=== PATIENT | male | born 1950 | race Caucasian/White ===

== ENCOUNTER 2018-05-07 11:20 | Outpatient (CLI) | payer OTHER ==
[~2018-05-07] VITALS: Ht 175.3 cm; Wt 86.4 kg
--- NOTE | ~2018-05-07 | HEMODYNAMI ---
PATIENT:ARY WANG MEDICAL RECORD: [id number] : 54 LOCATION:D.CAT ADMISSION DATE: 05/07/18 Generatedon:05/07/201814:58 Patient name: ARY WANG Patient #: [id number] SSN: : 1950 Date of study: 05/07/2018 Page: Of Hemodynamic Procedure Report Patient Data Patient Demographics Procedure consent was obtained First Name: ARY Gender: Male Last Name: KATHLEEN : 1950 Patient #: [id number] Age: 68 year(s) Race: Additional ID: [id number] Contact details [address]: [address] [place] [address] State: [place] City: [place] Zip code: [address] Admission Admission Data Admission Date: 05/07/2018 Admission Time: 11:20 Procedure Procedure Types Cath Procedure Diagnostic Procedure LHC LHC w/Coronaries w/Grafts PCI Procedure Coronary Stent Coronary Stent Initial Procedure Description Procedure Date Procedure Date: 05/07/2018 Procedure Start Time: 14:30 Procedure End Time: 14:57 Procedure Staff Name Function Sawyer Villavicencio MD Performing Physician Zeny Quintana RT Monitor Marisa Lebron RT Scrub Ammon Coyne RN Nurse Procedure Data Cath Procedure Fluoroscopy Diagnostic fluoroscopy Total fluoroscopy Time: 7.3 time: 7.3 min min Diagnostic fluoroscopy Total fluoroscopy dose: dose: 1027 mGy 1027 mGy Contrast Material Contrast Material Type Amount (ml) Isovue 300 128 Entry Location Entry Primary Successful Side Size Upsize Upsize Entry Closure Succes sful Closure Location (Fr) 1 (Fr) 2 (Fr) Remarks Device Remarks Femoral Right 5 Fr 6 Fr Exoseal artery Short Estimated blood loss: 5 ml Diagnostic catheters Device Type Used For End Catheter Placement MULTIPACK JL 4.0 5Fr Left Coronary catheter Angiography MULTIPACK 3DRC 5Fr Right Coronary catheter Angiography MULTIPACK Pigtail 5 Fr LV Angiography catheter DIAGNOSTIC MPA-2 5Fr Multi-vessel catheter ([id number]) Angiography Procedure Complications No complications Procedure Medications Medication Administration Route Dosage 0.9% NaCl I.V. 100 ml/hr Oxygen etCO2 Nasal cannula 2 l/min Heparin Flush Bag added to field 2 bags (1000units/500ml NS) Lidocaine 2% added to field 20 Versed I.V. 2 mg Fentanyl I.V. 100 mcg Heparin Bolus I.V. 5000 units Integrilin (Bolus I.V. 7.9 ml 2mg/ml) Integrilin (Bolus wasted 2.1 ml 2mg/ml) Plavix P.O. 600 mg Hemodynamics Rest Heart Rate: 77 (bpm) Pressure Samples Time Site Value (mmHg) Purpose Heart Use Rate(bpm) 14:38 LV 114/15,20 Snapshot 77 14:39 AO 116/67(90) Pullback 76 14:39 LV 120/16,19 Pullback 76 Gradients Valve Time Site 1 Site 2 Mean SEP/DFP Peak To Heart Use (mmHg) (sec/min) Peak Rate (mmHg) (bpm) Aortic 14:39 LV AO 4 16 4 76 120/16,19 116/67(90) Calculations Valve P-P Mean Valve Index Valve Source Name Gradient Area Flow (cm2) Aortic 4 4 4 4 Snapshots Pre Cath Intra NCS Post Cath Vital Signs Time Heart Resp SPO2 etCO2 NIBP (mmHg) Rhythm Pain Sedation Rate (ipm) (%) (mmHg) Status Level (bpm) 14:06:16 75 19 100 27.1 128/76(96) NSR 0 (11) 10(A) , No pain 14:10:24 75 6 95 0 109/80(92) NSR 0 (11) 10(A) , No pain 14:15:15 71 10 99 16.5 136/78(111) NSR 0 (11) 10(A) , No pain 14:19:25 75 11 99 15.8 134/82(112) NSR 0 (11) 10(A) , No pain 14:23:37 76 11 99 29.3 128/77(99) NSR 0 (11) 10(A) , No pain 14:27:47 76 12 99 20.3 127/77(109) NSR 0 (11) 10(A) , No pain 14:31:58 75 12 99 39.9 129/69(100) NSR 0 (11) 9(A) , No pain 14:36:10 78 12 99 39.9 121/68(95) NSR 0 (11) 9(A) , No pain 14:40:18 80 11 99 41.4 128/73(102) NSR 0 (11) 9(A) , No pain 14:44:28 78 12 99 42.1 117/75(94) NSR 0 (11) 9(A) , No pain 14:48:34 77 12 99 41.4 116/76(92) NSR 0 (11) 10(A) , No pain 14:52:40 76 13 99 40.6 118/74(89) NSR 0 (11) 10(A) , No pain 14:56:45 75 13 99 36.2 125/75(90) NSR 0 (11) 10(A) , No pain Medications Time Medication Route Dose Verified Delivered Reason Notes Effectiveness by by 14:07:04 0.9% NaCl I.V. 100 Ammon Ammon Per physician ml/hr Stanford Coyne RN RN 14:07:14 Oxygen etCO2 2 Ammon Ammon Per physician Nasal l/min Stanford Coyne cannula RN RN 14:07:26 Heparin Flush added 2 Ammon Ammon used for Bag to bags Stanford Coyne procedure (1000units/500ml RN RN NS) 14:07:35 Lidocaine 2% added 20ml Ammon Ammon for local to vial Stanford Coyne anesthetic RN RN 14:31:28 Versed I.V. 2 mg Ammon Ammon for sedation Stanford Coyne RN RN 14:31:41 Fentanyl I.V. 100 Ammon Ammon for sedation mcg Stanford Coyne RN RN 14:47:44 Heparin Bolus I.V. 5000 Ammon Ammon for units Stanford Coyne anticoagulation RN RN 14:48:03 Integrilin I.V. 7.9 Ammon Ammon for (Bolus 2mg/ml) ml Stanford Coyne antiplatelet RN RN therapy 14:48:12 Integrilin wasted 2.1ml Ammon Ammon to sharp's (Bolus 2mg/ml) Stanford Coyne RN RN 14:54:25 Plavix P.O. 600 Ammon Ammon for mg Stanford Coyne antiplatelet RN RN therapy Procedure Log Time Note 13:54:07 Informed consent obtained and on chart 13:54:11 Diagnostic Cath Status : Elective 13:54:33 Ammon Coyne RN sent for patient. Start room use. 13:54:34 Time tracking: Regular hours (M-F 7:00 - 5:00) 13:54:40 Plan of Care:Hemodynamics will remain stable., Cardiac rhythm will remain stable., Comfort level will be maintained., Respiratory function will remain adequate., Patient/ family verbilizes understanding of procedure., Procedure tolerated without complication., Recovers from procedure without complications.. 14:05:12 Patient received from Pre/Post Procedure Room to CCL 2 Alert and oriented. Tansferred to table in Supine position. 14:05:13 Warm blankets applied, and rafael hugger turned on for patient comfort. 14:05:14 Correct patient and procedure confirmed by team. 14:05:14 ECG and BP/O2 sat monitors applied to patient. 14:05:16 Vital chart was started 14:05:17 Baseline sample Acquired. 14:05:22 Rhythm: sinus rhythm 14:05:24 Full Disclosure recording started 14:05:28 H&P Date Dictated: 05/07/2018 Within 30 days and on chart., H&P Addendum completed by physician on day of procedure. (MUST COMPLETE FOR ALL OUTPATIENTS). 14:05:29 Pre-procedure instructions explained to patient. 14:05:30 Pre-op teaching completed and patient verbalized understanding. 14:05:31 Family in waiting room. 14:05:32 Patient NPO since Midnight. 14:05:47 Is the patient allergic to Iodine/contrast media? No. 14:05:47 Was the patient premedicated? No 14:05:49 Is patient on blood thinner?No 14:05:54 Patient diabetic? No. 14:05:59 Previous problem with sedation/anesthesia? No ? 14:06:01 Snore? Yes 14:06:02 Sleep apnea? Yes 14:06:03 Deviated septum? No 14:06:03 Opens mouth fully? Yes 14:06:04 Sticks out tongue? Yes 14:06:06 Airway obstruction? No ? 14:06:08 Dentures? No ? 14:06:12 Pre procedure: right dorsailis pedis pulse 2+ Normal; easily identifiable; not easily obliterated 14:06:14 Pre procedure: left dorsailis pedis pulse 2+ Normal; easily identifiable; not easily obliterated 14:06:16 Patient pain scale 0/10 ?. 14:06:22 IV patent on arrival in left hand with 0.9% NaCl at [facility]. 14:06:25 Lab results completed and on chart. 14:06:29 Right groin area was prepped with chlora-prep and draped in sterile fashion 14:06:30 Alarms reviewed by R. N. 14:06:30 Sharps counted by scrub and verified by R.N. 14:06:35 Use device set Femoral Dx 14:06:37 ACIST Syringe (58413) opened to sterile field. 14:06:37 Bag Decanter (2002S) opened to sterile field. 14:06:38 Medline Cath Pack ([id number]) opened to sterile field. 14:06:39 DIAGNOSTIC WIRE .035 260cm J wire (306856) opened to sterile field. 14:06:40 ACIST Hand Control (93533) opened to sterile field. 14:06:41 ACIST Manifold (65194) opened to sterile field. 14:06:41 DIAGNOSTIC Multipack 5Fr catheter set (NK9009) opened to sterile field. 14:06:42 Tegaderm 4 x 4 (1626W) opened to sterile field. 14:06:44 SHEATH 5FR Duff (AQE650) opened to sterile field. 14:07:04 0.9% NaCl 100 ml/hr I.V. was administered by Ammon Coyne RN; Per physician; 14:07:14 Oxygen 2 l/min etCO2 Nasal cannula was administered by Ammon Coyne RN; Per physician; 14:07:26 Heparin Flush Bag (1000units/500ml NS) 2 bags added to field was administered by Ammon Coyne RN; used for procedure; 14:07:35 Lidocaine 2% 20ml vial added to field was administered by Ammon Coyne RN; for local anesthetic; 14:20:05 Physician arrived 14:20:06 --------ALL STOP TIME OUT------ 14:20:07 Final Timeout: patient, procedure, and site verified with staff and physician. All members of the team are in agreement. 14:20:11 Right groin site verified by team. 14:20:14 Physical assessment completed. ASA score P 2 - A patient with mild systemic disease as per Sawyer Villavicencio MD. 14:20:18 Sedation plan: IV Moderate Sedation Medication:Versed, Fentanyl 14:22:10 Zero performed for pressure channel P1 14:29:58 Procedure started. 14:30:02 Local anesthetic to right femoral artery with Lidocaine 2% by Sawyer Villavicencio MD.INITIAL ACCESS ONLY 14:30:52 A 5 Fr sheath was inserted into the Right Femoral artery 14:31:28 Versed 2 mg I.V. was administered by Ammon Coyne RN; for sedation; 14:31:41 Fentanyl 100 mcg I.V. was administered by Ammon Coyne RN; for sedation; 14:31:42 A MULTIPACK JL 4.0 5Fr catheter was advanced over the wire and used for Left Coronary Angiography. 14:32:15 LONDONO angiography performed. 14:32:50 LCA angiography performed. 14:32:53 Injector settings: Ml/sec: 3, Volume: 6, 14:34:23 Catheter removed. 14:34:28 A MULTIPACK 3DRC 5Fr catheter was advanced over the wire and used for Right Coronary Angiography. 14:35:10 RCA angiography performed. 14:35:16 Injector settings: Ml/sec: 3, Volume: 6, 14:36:56 Catheter removed. 14:37:11 A MULTIPACK Pigtail 5 Fr catheter was advanced over the wire and used for LV Angiography. 14:38:33 LV hemodynamics recorded. 14:38:34 LV gram done using DAHL 14:38:37 Injector settings: Ml/sec: 5, Volume: 15, 14:38:58 EF : 55 % 14:39:11 Aortic Root visualized 14:39:23 A DIAGNOSTIC MPA-2 5Fr catheter ([id number]) was advanced over the wire and used for Multi-vessel Angiography. 14:41:15 SVG to RCA angiography performed. 14:42:21 Catheter removed. 14:42:22 Proceeding to intervention. 14:42:40 SHEATH 6FR Duff (JPC708) opened to sterile field. 14:42:41 INFLATOR Merit BasixCompak (NG0108) opened to sterile field. 14:42:42 WHISPER 300cm guide wire ([id number]) opened to sterile field. 14:45:17 GUIDE 6FR EBU 3.5 catheter ([id number]) opened to sterile field. 14:45:40 Sheath upsized to a 6 Fr Short. 14:45:49 6 Fr ebu 3.5 guide catheter was inserted over the wire 14:46:00 whisper wire advanced. 14:46:03 Wire advanced across lesion. 14:47:44 Heparin Bolus 5000 units I.V. was administered by Ammon Coyne RN; for anticoagulation; 14:48:03 Integrilin (Bolus 2mg/ml) 7.9 ml I.V. was administered by Ammon Coyne RN; for antiplatelet therapy; 14:48:12 Integrilin (Bolus 2mg/ml) 2.1ml wasted was administered by Ammon Coyne RN; to sharp's; 14:49:33 Inflate balloon Inflation number: 1 A EUPHORA 2.5 x 12 Balloon ([id number]) was prepped and advanced across the Ramus, then inflated to 10 MELISSA for 0:30 (min:sec). 14:49:59 Balloon removed over the wire. 14:52:18 Place stent Inflation Number: 2 A BRANDI OTW 2.5 x 15 stent ([id number]) was prepped and advanced across the Ramus. The stent was deployed at 14 MELISSA for 0:30 (min:sec). 14:52:42 Stent catheter was removed intact over wire. 14:52:43 Wire removed. 14:52:44 Guide catheter removed. 14:52:53 EXOSEAL 6Fr (EX600) opened to sterile field. 14:53:20 Sheath removed intact; hemostasis achieved with Exoseal to the Right Femoral artery. 14:54:14 Procedure ended.(Physican Out) 14:54:25 Plavix 600 mg P.O. was administered by Ammon Coyne RN; for antiplatelet therapy; 14:54:42 Fluoroscopy time 07.30 minutes. 14:54:47 Fluoroscopy dose: 1027 mGy 14:54:47 Flurop Dose total: 1027 14:55:09 Contrast amount:Isovue 300 128ml. 14:55:22 Sharps counted by scrub and verified by R.N. 14:55:24 Insertion/operative site no bleeding no hematoma. 14:55:26 Post-op/insertion site Right Femoral artery dressed using a 4 x 4 and Tegaderm. 14:55:30 Post right femoral artery:stable 14:55:31 Post Procedure Pulses reassessed and unchanged 14:55:34 Post procedure rhythm: unchanged. 14:55:39 Estimated blood loss: 5 ml 14:55:41 Post procedure instruction explained to patient.Patient verbalizes understanding. 14:55:47 Patient needs reinforcement of post procedure teaching. 14:56:37 Procedure type changed to Cath procedure, Diagnostic procedure, LHC, LHC w/Coronaries w/Grafts, PCI procedure, Coronary Stent, Coronary Stent Initial 14:56:39 Procedure and supply charges have been captured, reviewed, submitted and are correct. 14:56:44 Procedure Complication : No complications 14:56:48 Vital chart was stopped 14:56:49 See physician's report for complete and final results. 14:56:54 Report given to Pre/Post Procedure Room. 14:56:57 Patient transfered to Pre/Post Procedure Room with Stretcher. 14:57:01 Procedure ended. 14:57:01 Full Disclosure recording stopped 14:57:11 ACC-PCI Only Patient was given prescriptions, or instructed by Sawyer Villavicencio MD to start/continue the following medications upon discharge: Plavix 14:57:15 End room use (Document Last) Intervention Summary Intervention Notes Time ActionType Lesion and Equipment Action# Pressure Duration Attributes Used 14:49:33 Inflate Ramus EUPHORA 2.5 x 1 10 00:30 balloon 12 Balloon ([id number]) 14:52:18 Place stent Ramus BRANDI OTW 2.5 2 14 00:30 x 15 stent ([id number]) Device Usage Item Name Manufacture Quantity Catalog Hospital Part Current Minim al Lot# / Number Charge Number Stock Stock Serial# Code ACIST Syringe Acist 1 18093 266242 768690 622838 20 (80477) Medical Systems Inc Bag Decanter Microtek 1 2001S 034549 24428 691942 5 () Medical Inc. Medline Cath Medline 1 [id number] 621638 44854 358695 5 Pack ([id number]) DIAGNOSTIC [facility] [place] 1 233314 980756 380308 567077 30 WIRE .035 260cm J wire (116894) ACIST Hand Acist 1 98014 668273 091024 304727 5 Control Medical (33495) Systems Inc ACIST Acist 1 06454 881511 988051 515972 5 Manifold Medical (03848) Systems Inc DIAGNOSTIC Cardinal 1 UQ3122 582340 03738 100116 30 Multipack 5Fr Health catheter set (ZO5219) Tegaderm 4 x 3M 1 1626W 123048 568687 183306 5 4 (1626W) SHEATH 5FR Terumo 1 RPC460 481540 698761 900872 40 Duff (TYI257) MULTIPACK JL Cardinal 1 845432 5 4.0 5Fr Health catheter MULTIPACK Cardinal 1 533634 5 3DRC 5Fr Health catheter MULTIPACK Cardinal 1 388283 5 Pigtail 5 Fr Health catheter DIAGNOSTIC Cardinal 1 [id number] 395158 241340 807463 5 MPA-2 5Fr Health catheter ([id number]) SHEATH 6FR Terumo 1 OQE109 559262 210154 482409 40 Duff (KFP591) INFLATOR [facility] 1 PG3117 147881 584711 214938 15 [facility] BasixCompak (BI4776) WHISPER 300cm [place] 1 [id number] 402958 816242 084203 5 guide wire Vascular ([id number]) GUIDE 6FR EBU Medtronic 1 IL2VAS29 548193 36198 292895 3 3.5 catheter ([id number]) EUPHORA 2.5 x Medtronic 1 [id number] 255888 513420 991510 5 [id number] 12 Balloon ([id number]) BRANDI OTW 2.5 Medtronic 1 [id number] 369071 65874 462041 5 [id number] x 15 stent ([id number]) EXOSEAL 6Fr Cardinal 1 EX600 417221 020588 544769 10 (EX600) Health Signature Audit [place] Stage Time Signature Unsigned Intra-Procedure 05/07/2018 Zeny Quintana 2:58:51 PM RT(R) Signatures Monitor : Zeny Quintana RT Signature : Date : Time : [facility] [address] [place] [address]
--- NOTE | ~2018-05-07 | OP ---
PATIENT NAME: ARY WANG MEDICAL RECORD: [id number] :54 LOCATION:D.CAT ADMISSION DATE: SURGEON: ALLISON GALARZA MD DATE OF OPERATION: 05/07/2018 PROCEDURES: Left heart catheterization, selective coronary angiography plus grafts plus intervention to ramus intermediate branch, right femoral artery approach. CATHETERS: A 5-Malay sheath, 5/4 left and right Edmundo, 5/4 pig. The procedure was well tolerated. The patient was returned to the fong. Sheath was removed. ExoSeal device was placed. FINDINGS: Left ventriculography in 30-degree DAHL view: Normal wall motion and normal systolic function. CORONARY ANATOMY: LEFT MAIN: Left main tapers to about 50% stenosis. LAD: LAD fills for a short period of time, then fills via competitive flow. RAMUS: Ramus is a moderate-size ramus intermediate branch, which has a 90% or better stenosis in its midportion. CIRCUMFLEX: Free of disease. RIGHT CORONARY ARTERY: Occluded at its midportion. BYPASS GRAFTS: 1. LONDONO: The LAD is widely patent throughout its course. No evidence of postanastomotic stenosis. 2. Saphenous vein graft to right: Widely patent throughout its course without evidence of postanastomotic stenosis. Aortic root injection shows only the 2 above grafts filling with normal-sized aortic root and no significant aortic insufficiency. DESCRIPTION: A 5-Malay sheath was exchanged for a 6-Malay sheath. XB LAD guiding catheter provided excellent guide catheter support followed by 300 cm Whisper wire which was placed across the tightly occluded ramus down this portion of vessel. Predeployment balloon used was a 2.5 [place] up to 10 atmospheres. Stent deployed was a 2.5 x 18 mm Felipe drug-eluting stent up to 14 atmospheres. Final angiography showed excellent resolution of 90% plus stenosis with no significant residual. MYCHAL flow was 3 throughout the procedure. Integrilin was used during the case. Sheath was closed with ExoSeal device. TRANSINT:[id number] Voice Confirmation ID: [id number] DOCUMENT ID: [id number] ALLISON GALARZA MD at 1309 CC: [id number] DICTATION DATE: 05/07/18 1501 STOCK RAISER: 05/07/18 1610 DEP CLI 05/07/18 [facility] [address] [place] [address]
[2018-05-07] MEDS ORDERED: ZOLOFT100 MG PO (11:45)
[2018-05-07] MEDS ORDERED: GLUCOPHAGE1000 MG PO ×2 (11:45→18:51)
[2018-05-07] MEDS ORDERED: PRINZIDE 20/12.1 TA1 PO (11:46)
[2018-05-07 11:59] VITALS: BP 108/77; Ht 175.3 cm; Wt 86.4 kg
[2018-05-07 12:07] LABS: BASOPHILS 0.4 % (0-2); EOSINOPHILS 1.3 % (0-7); HEMATOCRIT 39.7 % (42.0-54.0); HEMOGLOBIN 13.6 g/dL (13.5-17.5); IMMATURE GRANULOCYTES 0.2 % (0-5); LYMPHOCYTES 25.5 % (15-50); MCH 28.3 pg (26.0-34.0); MCHC 34.3 g/dL (31.0-37.0); MCV 82.5 fL (80.0-100.0); MEAN PLATELET VOLUME 10.5 fL (7.4-10.4); MONOCYTES 6.3 % (2-11); NEUTROPHILS 66.3 % (40-80); PLATELET COUNT 320 10x3/uL (130-400); RBC 4.81 10x6/uL (4.20-6.10); RDW 12.8 % (11.5-14.5); WBC 8.4 10x3/uL (4.8-10.8)
[2018-05-07 12:24] LABS: CALC OSMOLALITY 273 mosm/kg (275-300); CARBON DIOXIDE 25.4 mmol/L (21.0-32.0); CHLORIDE - SERUM 96 mmol/L (98-107); CREATININE - SERUM 0.8 mg/dL (0.6-1.3); GLUCOSE 286 mg/dL (74-106); SODIUM 131 mmol/L (136-145); UREA NITROGEN 15 mg/dL (7-18); eGFR NON AFRICAN AMERICAN > 90 mL/min (90-120)
[2018-05-07] MEDS ORDERED: PLAVIX75 MG PO (15:19)
[2018-05-07] MEDS ORDERED: BAYER CHEWABLE81 MG PO (15:19)
== END 2018-05-07 19:05 | disposition home or self-care (01) ==
LOC: D.CATH 11:20
PROVIDERS: Internal Medicine Interventional Cardiology
DX: I25.10 Atherosclerotic heart disease of native coronary artery without angina pectoris (principal); I10 Essential (primary) hypertension; R94.39 Abnormal result of other cardiovascular function study
CPT/HCPCS: 93459; C9600

== ENCOUNTER → 2019-12-03 10:31 | Outpatient (CLI) | payer OTHER ==
[2018-05-07 11:59] VITALS: BMI 28.1
[~2019-12-03 10:31] MED LIST: BAYER CHEWABLE81 MG PO; GLUCOPHAGE1000 MG PO; PLAVIX75 MG PO; PRINZIDE 20/12.1 TA1 PO; ZOLOFT100 MG PO
== END | disposition home or self-care (01) ==
LOC: D.HCCECHO 10:00
PROVIDERS: ATTEND Internal Medicine Interventional Cardiology
DX: I25.10 Atherosclerotic heart disease of native coronary artery without angina pectoris (principal)

== ENCOUNTER → 2020-12-01 10:42 | Outpatient (CLI) | payer MEDICARE ==
[2020-04-29 12:36] VITALS: BMI 27.3
== END | disposition home or self-care (01) ==
LOC: D.HCCECHO 10:00
PROVIDERS: ATTEND Internal Medicine Interventional Cardiology
DX: I25.10 Atherosclerotic heart disease of native coronary artery without angina pectoris (principal)